=== PATIENT | male | born 1995 | race Caucasian/White ===

== ENCOUNTER 2019-09-23 03:20 | Emergency (ER) | payer OTHER ==
[~2019-09-23] VITALS: Ht 177.8 cm; Wt 81.6 kg
[2019-09-23 03:28] VITALS: Ht 177.8 cm; Wt 81.6 kg
[2019-09-23 04:07] VITALS: BP 145/94
== END 2019-09-23 04:07 | disposition other institution (70) ==
LOC: ED 03:20
DX: Z02.89 Encounter for other administrative examinations (principal)